=== PATIENT | male | born 1970 | race Caucasian/White ===

== ENCOUNTER 2017-12-10 07:47 | Day surgery (SDC) | payer OTHER ==
[~2017-12-10 07:47] MED LIST: LIDOCAINE HCL 1% MPF 30 SOL ONE; PROPOFOL 500 MG/50 ML EMU IV ONE
[2017-12-10] MEDS ORDERED: ONDANSETRON HCL 4 MG/2 ML SOL ONE (09:35)
[2017-12-10 10:42] VITALS: BP 142/87; PULSE 61; RESP 18; TEMP 97.4; O2SAT 97
== END 2017-12-10 11:10 | disposition home or self-care (01) | DRG 392 ==
LOC: SURG 07:47
PROVIDERS: ATTEND Internal Medicine Gastroenterology
DX: K52.9 Noninfective gastroenteritis and colitis, unspecified (principal); K59.00 Constipation, unspecified; K92.1 Melena; R15.2 Fecal urgency; K64.4 Residual hemorrhoidal skin tags; K64.8 Other hemorrhoids; K63.5 Polyp of colon; K62.1 Rectal polyp
CPT/HCPCS: J2405; J2001; J2704